=== PATIENT | male | born 1960 | race Two or more races ===

== ENCOUNTER 2022-01-21 23:14 | Emergency (ER) | payer MEDICARE ==
[~2022-01-21] VITALS: Ht 180.3 cm; Wt 77.1 kg
--- NOTE | 2022-01-21 23:42 | NUR ---
EMT AT PT'S BEDSIDE TO CLEAN LAC TO SCALP
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
--- NOTE | 2022-01-21 23:44 | NUR ---
PT TAKEN TO CT VIA HEIDY
--- NOTE | 2022-01-21 23:49 | NUR ---
PT RETURNED TO ER BED [address]
[2022-01-21] MEDS ORDERED: TDAP [DIPH/PERTUSSIS/TET] 0.5 ML VIAL IM ONE (23:52)
[2022-01-22] MEDS ORDERED: LIDOCAINE 1%-EPI 1:100,000 20 ML VIAL ONE (00:12)
[2022-01-22] MEDS ORDERED: TDAP [DIPH/PERTUSSIS/TET] 0.5 ML VIAL IM ONE (00:23)
--- NOTE | 2022-01-22 00:23 | NUR ---
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
[2022-01-22] MEDS: TDAP [DIPH/PERTUSSIS/TET] 0.5 ML VIAL IM ONE (00:26)
--- NOTE | 2022-01-22 00:30 | NUR ---
EMT AT BEDSIDE FOR WOUND CARE. SEWING MACHINE OPERATOR PAPER BAGS AT BEDSIDE FOR JENNIFER
--- NOTE | 2022-01-22 00:53 | NUR ---
Patient discharged to home in stable condition. Written and verbal after care instructions given. Patient verbalizes understanding of instruction.PT ambulatory with a steady gait
[2022-01-22 01:07] VITALS: BP 122/70
== END 2022-01-22 00:53 | disposition home or self-care (01) ==
LOC: ER 23:16
DX: S01.01XA Laceration without foreign body of scalp, initial encounter (principal); S50.12XA Contusion of left forearm, initial encounter; S20.221A Contusion of right back wall of thorax, initial encounter; R51.9 Headache, unspecified; W01.0XXA Fall on same level from slipping, tripping and stumbling without subsequent striking against object, initial encounter; Y93.89 Activity, other specified; Y92.89 Other specified places as the place of occurrence of the external cause; Y99.8 Other external cause status
CPT/HCPCS: 99284; 70450; 12001; 90471; 90715; 72074; 73090; J3490

== ENCOUNTER 2024-10-23 20:43 | Emergency (ER) | payer MEDICARE ==
[~2024-10-23] VITALS: Ht 180.3 cm; Wt 63.5 kg
[2024-10-23 23:51] LABS: PLATELET COUNT (AUTO) 220 K/uL (150-450); RED BLOOD CELL COUNT(AUTO) 4.38 MIL/uL (4.5-6.0); RED CELL DISTRIBUTION WIDTH 13.8 % (11.5-15.0); WHITE BLOOD COUNT (AUTO) 10.0 K/uL (4.3-11.0)
[2024-10-23 23:57] LABS: CALCIUM, SERUM 9.2 mg/dL (8.5-10.1); CREATININE 1.1 mg/dL (0.6-1.3); SODIUM SERUM 145.0 mmol/L (136-145); UREA NITROGEN, BLOOD 9.0 mg/dL (7-18)
[2024-10-24 00:02] LABS: ASPARTATE AMINOTRANSFERASE 18.0 U/L (15-37); TOTAL PROTEIN, SERUM 6.9 g/dL (6.4-8.2)
[2024-10-24 00:56] LABS: ADD URINE CULTURE NO; APPEARANCE,URINE CLEAR (CLEAR); BLOOD, URINE 1+ Ery/uL (NEGATIVE); LEUKOCYTE ESTERASE ,URINE NEGATIVE (NEGATIVE); NITRITE, URINE NEGATIVE (NEGATIVE); SQUAMOUS EPITHELIAL CELL,UR Rare /HPF (None Seen); UGLUCOSE NEGATIVE (NEGATIVE)
[2024-10-24 02:04] VITALS: BP 133/67; TEMP 98; O2SAT 97
== END 2024-10-24 02:05 | disposition home or self-care (01) ==
LOC: ER 20:46
DX: R33.9 Retention of urine, unspecified (principal); N40.1 Benign prostatic hyperplasia with lower urinary tract symptoms
CPT/HCPCS: 36415; 80053-TC; 81001; 85025-TC; 87040-TC